=== PATIENT | female | born 1955 | race Caucasian/White ===

== ENCOUNTER 2024-06-30 13:52 | Outpatient (CLI) | payer MEDICARE, BC, SELFPAY | END 2024-06-30 13:53 | disposition home or self-care (01) | PROVIDERS: Visit Provider Family Medicine | DX: M81.0 Age-related osteoporosis without current pathological fracture (principal) | CPT/HCPCS: 80048; 82306 ==

== ENCOUNTER 2024-08-11 12:46 | Outpatient (CLI) | payer MEDICARE, BC, SELFPAY ==
--- NOTE | 2024-08-11 13:00 | CRLHL7_ITS ---
For Patients: As a result of the Cures Act, medical imaging exams and procedure reports are released immediately into your electronic medical record. You may view this report before your referring provider. If you have questions, please contact your health care provider. INDICATION: Compression fracture. TECHNIQUE: Noncontrast MRI of the lumbar spine is performed in the usual fashion. COMPARISON: From April 23 and January 05, 2024. FINDINGS: Stable chronic, severe compression fracture of the L1 vertebral body with mild retropulsion of posterior fracture fragment. Remainder of the lumbar spine demonstrates normal overall stature, alignment and transit marrow signal. Conus is within normal limits. T12-L1: Mild central canal narrowing due to retropulsion of posterior fracture fragment. Neural foramina are patent. L1-2: There is mild central canal narrowing at the L1 level. The neural foramina are patent. L2-3: Central canal and neural foramina patent. L3-4: Moderate bilateral facet arthropathy with mild broad-based posterior disc bulge results in no significant central canal or foraminal narrowing. L4-5: Moderate bilateral facet arthropathy with mild leftward eccentric disk bulge results in minimal left foraminal narrowing with no central canal or right foraminal narrowing. L5-S1: Unremarkable. IMPRESSION: 1. Stable severe chronic compression fracture of the L1 vertebral body with retropulsion of posterior fracture fragment resulting in mild central canal narrowing. 2. Mild scattered degenerative changes of the lumbar spine as outlined above resulting in no significant central canal or foraminal narrowing. Dictated by Hussein Amador MD @ 08/13/2024 9:20:39 AM (Electronically Signed)
--- NOTE | 2024-08-11 14:00 | CRLHL7_ITS ---
For Patients: As a result of the Century Cures Act, medical imaging exams and procedure reports are released immediately into your electronic medical record. You may view this report before your referring provider. If you have questions, please contact your health care provider. INDICATION: History of compression fracture TECHNIQUE: Non-contrast axial CT of the thoracic spine with coronal and sagittal reconstructions. Compared to prior study from January 02, 2024 FINDINGS: There is incomplete visualization of a chronic L1 compression fracture. Stable minor chronic wedging of the T11 vertebral body. The overall stature and alignment within the remainder of the thoracic spine is within normal limits. No evidence of bony fragments narrowing the central canal or visualized neural foramina within the visualized thoracic spine. IMPRESSION: 1. No convincing radiographic evidence of acute osseous injury within the visualized thoracic spine. 2. Incompletely visualized chronic compression fracture of L1. Please note that all CT scans at this facility use dose modulation, iterative reconstruction, and/or weight-based dosing when appropriate to reduce radiation dose to as low as reasonably achievable. Dictated by Hussein Amador MD @ 08/13/2024 9:27:12 AM (Electronically Signed)
--- NOTE | 2024-08-11 14:30 | CRLHL7_ITS ---
For Patients: As a result of the Cures Act, medical imaging exams and procedure reports are released immediately into your electronic medical record. You may view this report before your referring provider. If you have questions, please contact your health care provider. INDICATION: Compression fracture. TECHNIQUE: Noncontrast CT of the lumbar spine is performed in the usual fashion with coronal/sagittal 3D reformats. COMPARISON: From April 23 and January 05, 2024. FINDINGS: Stable chronic, severe compression fracture of the L1 vertebral body with mild retropulsion of posterior fracture fragment. Remainder of the lumbar spine demonstrates normal overall stature, alignment. T12-L1: Mild central canal narrowing due to retropulsion of posterior fracture fragment. Neural foramina are patent. L1-2: There is mild central canal narrowing at the L1 level. The neural foramina are patent. L2-3: Central canal and neural foramina patent. L3-4: Moderate bilateral facet arthropathy with mild broad-based posterior disc bulge results in no significant central canal or foraminal narrowing. L4-5: Moderate bilateral facet arthropathy with mild leftward eccentric disk bulge results in minimal left foraminal narrowing with no central canal or right foraminal narrowing. L5-S1: Unremarkable. IMPRESSION: 1. Stable severe chronic compression fracture of the L1 vertebral body with retropulsion of posterior fracture fragment resulting in mild central canal narrowing. 2. Mild scattered degenerative changes of the lumbar spine as outlined above resulting in no significant central canal or foraminal narrowing. Please note that all CT scans at this facility use dose modulation, iterative reconstruction, and/or weight-based dosing when appropriate to reduce radiation dose to as low as reasonably achievable. Dictated by Hussein Amador MD @ 08/13/2024 9:21:59 AM (Electronically Signed)
== END 2024-08-11 12:47 | disposition home or self-care (01) ==
PROVIDERS: PCP Family Medicine; Visit Provider Family Medicine
DX: S32.001A Stable burst fracture of unspecified lumbar vertebra, initial encounter for closed fracture (principal); M54.16 Radiculopathy, lumbar region; M54.9 Dorsalgia, unspecified; Z87.828 Personal history of other (healed) physical injury and trauma
CPT/HCPCS: 72128; 72131; 72148